=== PATIENT | male | born 1990 | race Caucasian/White ===

== ENCOUNTER 2023-05-12 13:09 | Inpatient (IN) | payer OTHER ==
[2023-05-12 15:26] LABS: BASO % 0.8 % (0-2.0); EOS % 1.8 % (0-4.5); HEMATOCRIT 50.1 % (35.4-49); HEMOGLOBIN 16.6 GM/dL (11.7-16.9); LYMPH % 19.7 % (8-40); MCH 27.6 pg (25.7-33.7); MEAN CELL VOLUME 83.4 fl (80-96); MEAN PLT VOLUME 8.6 fl (7.5-11.1); MONO % 9.3 % (3.8-10.2); NEUT % 68.4 % (42.8-82.8); PLATELET COUNT 182 10^3/uL (134-434); RBC 6.01 M/mm3 (4.00-5.60); WHITE BLOOD COUNT 14.5 K/mm3 (4.0-10.0)
[2023-05-12 15:47] LABS: POTASSIUM 3.8 mmol/L (3.5-5.1)
[2023-05-12 15:49] LABS: CALCIUM 8.9 mg/dL (8.5-10.1)
[2023-05-12 15:50] LABS: BLOOD UREA NITROGEN 23.8 mg/dL (7-18)
[2023-05-12 15:53] LABS: CREATININE 0.9 mg/dL (0.55-1.3)
[2023-05-12 15:54] LABS: BILIRUBIN,TOTAL 0.5 mg/dL (0.2-1); TOT PROT 7.2 g/dl (6.4-8.2)
[2023-05-12 17:00] LABS: EPI CELLS 2 /uL (0-25.1); HYALINE CASTS 1 /uL (0-3.1); PH,URINE 5.5 (5.0-8.0); URINE APPEARANCE CLEAR; URINE BACTERIA 5 /uL (0-1359); URINE BILIRUBIN NEGATIVE (NEGATIVE); URINE COLOR DK YELLOW; URINE GLUCOSE (UA) NEGATIVE (NEGATIVE); URINE KETONE NEGATIVE (NEGATIVE); URINE LEUK ESTERASE NEGATIVE (NEGATIVE); URINE NITRITE NEGATIVE (NEGATIVE); URINE PROTEIN NEGATIVE (NEGATIVE); URINE RBC 109 /uL (0-23.9); URINE WBC 9 /uL (0-25.8)
[2023-05-12] MEDS ORDERED: SODIUM CHLORIDE 0.9% 1000 ML INFUS.BAG IV ONE (18:07)
[2023-05-12] MEDS ORDERED: ACETAMINOPHEN 1000 MG/100 ML BAG IVPB PRN (20:14)
[2023-05-12] MEDS ORDERED: ONDANSETRON 4 MG/2 ML VIAL IVPB PRN (20:15)
[2023-05-12] MEDS ORDERED: PANTOPRAZOLE SODIUM 40 MG VIAL IVPUSH SCH (20:22)
[2023-05-12] MEDS ORDERED: PIPERACILLIN/TAZOB 4.5 GM 4.5 GM in DEXTROSE 5%-WATER 100 ML IVPB ONE (20:38)
[2023-05-12] MEDS ORDERED: PANTOPRAZOLE SODIUM 40 MG VIAL ONE (20:39)
[2023-05-12] MEDS: SODIUM CHLORIDE 1,000 ML IV SCH (20:41)
[2023-05-12] MEDS: PANTOPRAZOLE SODIUM 40 MG VIAL IVPUSH SCH (20:42)
[2023-05-12] MEDS ORDERED: PIPERACILLIN/TAZOB 4.5 GM 4.5 GM/100 ML BAG IVPB ONE (20:44)
[2023-05-12] MEDS ORDERED: ACETAMINOPHEN INJECTION 100 ML IVPB ONE (20:44)
[2023-05-12] MEDS ORDERED: morphine SULFATE 4 MG/ML VIAL IVPUSH PRN (21:06)
[2023-05-12 23:51] LABS: INR 1.07 (0.83-1.09); PROTHROMBIN TIME (PATIENT) 12.4 SEC (9.7-13.0)
[2023-05-13] MEDS: SODIUM CHLORIDE 1,000 ML IV SCH ×2 (02:53→12:31)
[2023-05-13 03:15] VITALS: RESP 18; BMI 39.4
[2023-05-13] MEDS ORDERED: PIPERACILLIN/TAZOB 3.375 GM 3.375 GM in DEXTROSE 5%-WATER - 50 ML IVPB SCH ×3 (06:41→10:00)
[2023-05-13 09:08] LABS: HEMATOCRIT 43.9 % (35.4-49); HEMOGLOBIN 15.3 GM/dL (11.7-16.9); MCH 28.6 pg (25.7-33.7); MCHC 34.9 g/dl (32.0-35.9); MEAN CELL VOLUME 81.8 fl (80-96); MEAN PLT VOLUME 8.9 fl (7.5-11.1); PLATELET COUNT 159 10^3/uL (134-434); RBC 5.37 M/mm3 (4.00-5.60); RDW 13.1 % (11.9-15.9); WHITE BLOOD COUNT 11.7 K/mm3 (4.0-10.0)
[2023-05-13 09:14] LABS: POTASSIUM 3.8 mmol/L (3.5-5.1)
[2023-05-13 09:19] LABS: ALBUMIN 3.4 g/dl (3.4-5.0); CALCIUM 8.2 mg/dL (8.5-10.1)
[2023-05-13 09:20] LABS: BLOOD UREA NITROGEN 16.8 mg/dL (7-18); MAGNESIUM 2.1 mg/dL (1.8-2.4)
[2023-05-13 09:21] LABS: BILIRUBIN,DIRECT 0.2 mg/dL (0.0-0.2)
[2023-05-13 09:22] LABS: CREATININE 0.7 mg/dL (0.55-1.3); PHOSPHOROUS 3.1 mg/dL (2.5-4.9)
[2023-05-13 09:23] LABS: BILIRUBIN,TOTAL 1.2 mg/dL (0.2-1); TOT PROT 6.4 g/dl (6.4-8.2)
[2023-05-13] MEDS ORDERED: PIPERACILLIN/TAZOB 3.375 GM 3.375 GM in DEXTROSE 5%-WATER - 50 ML IVPB ONE (10:00)
[2023-05-13] MEDS: PANTOPRAZOLE SODIUM 40 MG VIAL IVPUSH SCH ×2 (10:40→22:29)
[2023-05-13] MEDS ORDERED: ACETAMINOPHEN 1000 MG/100 ML BAG IVPB PRN (16:57)
[2023-05-13] MEDS: PIPERACILLIN/TAZOB 4.5 GM 4.5 GM in DEXTROSE 5%-WATER 100 ML IVPB SCH (18:08)
[2023-05-14] MEDS: PIPERACILLIN/TAZOB 4.5 GM 4.5 GM in DEXTROSE 5%-WATER 100 ML IVPB SCH ×2 (02:18→09:47)
[2023-05-14 06:30] VITALS: BP 112/62; PULSE 62; TEMP 98.2
[2023-05-14] MEDS: PANTOPRAZOLE SODIUM 40 MG VIAL IVPUSH SCH (09:47)
[2023-05-14 10:44] LABS: BASO % 0.6 % (0-2.0); EOS % 2.3 % (0-4.5); HEMATOCRIT 45.4 % (35.4-49); HEMOGLOBIN 15.9 GM/dL (11.7-16.9); LYMPH % 20.4 % (8-40); MCH 28.5 pg (25.7-33.7); MEAN CELL VOLUME 81.3 fl (80-96); MONO % 9.8 % (3.8-10.2); NEUT % 66.9 % (42.8-82.8); PLATELET COUNT 167 10^3/uL (134-434); RBC 5.59 M/mm3 (4.00-5.60); RDW 13.2 % (11.9-15.9)
[2023-05-14 11:31] LABS: POTASSIUM 3.8 mmol/L (3.5-5.1)
[2023-05-14 11:33] LABS: ALBUMIN 3.6 g/dl (3.4-5.0); CALCIUM 8.8 mg/dL (8.5-10.1)
[2023-05-14 11:34] LABS: BLOOD UREA NITROGEN 15.4 mg/dL (7-18); MAGNESIUM 2.3 mg/dL (1.8-2.4)
[2023-05-14 11:36] LABS: CREATININE 0.8 mg/dL (0.55-1.3); PHOSPHOROUS 3.3 mg/dL (2.5-4.9)
[2023-05-14 11:38] LABS: BILIRUBIN,TOTAL 1.1 mg/dL (0.2-1); TOT PROT 7.1 g/dl (6.4-8.2)
== END 2023-05-14 14:33 | disposition home or self-care (01) | DRG 394 ==
LOC: JER 13:09 → JERBED 18:06 → J5S 05-13 02:46
PROVIDERS: ADMIT Internal Medicine; ATTEND Internal Medicine
DX: K35.80 Unspecified acute appendicitis (principal); N17.9 Acute kidney failure, unspecified; K21.9 Gastro-esophageal reflux disease without esophagitis; D72.829 Elevated white blood cell count, unspecified
CPT/HCPCS: 36415; 74177-TC; 80048; 80053; 80076; 81003; 83735; 84100; 85025; 85027; 85610; 86850; 86900; 86901; 87040; 93005; 93010; 99285-25; Q9967

== ENCOUNTER 2023-06-17 04:41 | Day surgery (SDC) | payer OTHER ==
[2023-06-10 17:28] VITALS: BMI 39.9
[~2023-06-17 04:41] MED LIST: BUPIVACAINE HCL/PF 0.25% (2.5MG/ML) 10 ML VIAL IJ ONE
[2023-06-17] MEDS ORDERED: BUPIVACAINE HCL/PF 0.25% (2.5MG/ML) 10 ML VIAL ONE (09:22)
[2023-06-17] MEDS ORDERED: MIDAZOLAM HCL 2 MG/2 ML SINGLE DOSE VIAL ONE ×2 (09:33→09:36)
[2023-06-17] MEDS ORDERED: PROPOFOL 20 ML ONE (09:33)
[2023-06-17] MEDS ORDERED: GLYCOPYRROLATE 0.2 MG/1 ML VIAL ONE (09:39)
[2023-06-17] MEDS ORDERED: cefOXitin SODIUM 2 GM VIAL (RESTRICTED TO ID) IVPB ONE ×2 (09:53→09:54)
[2023-06-17] MEDS ORDERED: SUGAMMADEX SODIUM 200 MG/2 ML VIAL ONE (09:54)
[2023-06-17] MEDS ORDERED: ROCURONIUM BROMIDE 50 MG/5 ML SYRINGE ONE (09:54)
[2023-06-17] MEDS ORDERED: BUPIVACAINE HCL/PF 0.25% (2.5MG/ML) 10 ML VIAL IJ ONE (10:06)
[2023-06-17] MEDS ORDERED: ONDANSETRON 4 MG/2 ML VIAL IVPUSH PRN (11:02)
[2023-06-17] MEDS ORDERED: LACTATED RINGERS SOLUTION 1,000 ML IV SCH (11:15)
[2023-06-17 13:41] VITALS: RESP 18
[2023-06-17 15:33] VITALS: BP 124/64; PULSE 68; TEMP 98
== END 2023-06-17 15:35 | disposition home or self-care (01) ==
LOC: JASU-SURG 04:41
PROVIDERS: ATTEND Surgery
PROC: 0DTJ4ZZ Resection of Appendix, Percutaneous Endoscopic Approach (ICD-10-PCS; principal; 2023-06-17 10:30)
DX: C18.1 Malignant neoplasm of appendix (principal); K35.32 Acute appendicitis with perforation, localized peritonitis, and gangrene, without abscess
CPT/HCPCS: 94760

== ENCOUNTER 2023-07-22 04:27 | Day surgery (SDC) | payer OTHER ==
[2023-07-22 10:08] VITALS: BMI 34.4
[2023-07-22 11:58] VITALS: TEMP 97.5
[2023-07-22 12:34] VITALS: BP 108/77; PULSE 81; RESP 17
== END 2023-07-22 12:49 | disposition home or self-care (01) ==
LOC: JASU-ENDO 04:27
PROVIDERS: ATTEND Internal Medicine Gastroenterology
PROC: 0DBC8ZX Excision of Ileocecal Valve, Via Natural or Artificial Opening Endoscopic, Diagnostic (ICD-10-PCS; 2023-07-22)
PROC: 0DBH8ZX Excision of Cecum, Via Natural or Artificial Opening Endoscopic, Diagnostic (ICD-10-PCS; principal; 2023-07-22 11:00)
DX: Z12.11 Encounter for screening for malignant neoplasm of colon (principal); K64.8 Other hemorrhoids; Z85.09 Personal history of malignant neoplasm of other digestive organs
CPT/HCPCS: 88305-TC

== ENCOUNTER 2023-07-29 04:16 | Inpatient (IN) | payer OTHER ==
[2023-07-25 11:46] VITALS: BMI 34.1
[2023-07-29] MEDS: GABAPENTIN 300 MG CAPSULE PO ONE (06:55)
[2023-07-29] MEDS ORDERED: INDOCYANINE GREEN 25 MG/10 ML VIAL IVPUSH ONE (07:21)
[2023-07-29] MEDS ORDERED: BUPIVACAINE HCL/PF 0.25% (2.5MG/ML) 10 ML VIAL ONE (07:22)
[2023-07-29] MEDS ORDERED: oxyCODONE HCL 5 MG TABLET PO PRN (07:29)
[2023-07-29] MEDS ORDERED: ONDANSETRON 4 MG/2 ML VIAL IVPUSH PRN (07:29)
[2023-07-29] MEDS ORDERED: DEXAMETHASONE SOD PHOSPHATE 4 MG/1 ML VIAL ONE (07:44)
[2023-07-29] MEDS ORDERED: ATROPINE SO4 0.4 MG/1 ML VIAL ONE (07:45)
[2023-07-29] MEDS ORDERED: MIDAZOLAM HCL 2 MG/2 ML SINGLE DOSE VIAL ONE (07:45)
[2023-07-29] MEDS ORDERED: HYDROmorphone HCl 2 MG/ML VIAL ONE (07:45)
[2023-07-29] MEDS ORDERED: ePHEDrine SULFATE 50 MG/1 ML AMPULE ONE (07:45)
[2023-07-29] MEDS ORDERED: PROPOFOL 40 ML ONE (07:45)
[2023-07-29] MEDS ORDERED: LIDOCAINE HCL 2% 100 MG/5 ML DISP.SYRIN ONE (07:45)
[2023-07-29] MEDS: cefOXitin SODIUM 2 GM VIAL (RESTRICTED TO ID) IVPB ONE ×4 (08:30→14:53)
[2023-07-29] MEDS ORDERED: GLYCOPYRROLATE 0.2 MG/1 ML VIAL ONE ×2 (08:43)
[2023-07-29] MEDS ORDERED: KETOROLAC TROMETHAMINE 30 MG/1 ML VIAL ONE (08:43)
[2023-07-29] MEDS ORDERED: ONDANSETRON 4 MG/2 ML VIAL ONE (08:43)
[2023-07-29] MEDS ORDERED: NEOSTIGMINE METHYLSULFATE 0.5 MG/1 ML - 10 ML MDV ONE (08:43)
[2023-07-29] MEDS: BUPIVACAINE HCL/PF 0.25% (2.5MG/ML) 10 ML VIAL IJ ONE ×2 (08:45)
[2023-07-29] MEDS: LACTATED RINGERS SOLUTION 1,000 ML IV SCH (12:57)
[2023-07-29] MEDS: ACETAMINOPHEN 1000 MG/100 ML BAG IVPB ONE (14:53)
[2023-07-29] MEDS: SCOPOLAMINE HYDROBROMIDE 1 PATCH PATCH.TD72 TD ONE (14:53)
[2023-07-29] MEDS: ACETAMINOPHEN 1000 MG/100 ML BAG IVPB SCH (14:56)
[2023-07-29] MEDS: AMPICILLIN NA/SULBACTAM NA 1.5 GM in SODIUM CHLORIDE 100 ML IVPB SCH ×2 (15:48→15:55)
[2023-07-30 02:27] VITALS: RESP 18
[2023-07-30 09:58] LABS: BASO % 0.5 % (0-2.0); EOS % 1.2 % (0-4.5); HEMATOCRIT 43.8 % (35.4-49); HEMOGLOBIN 14.9 GM/dL (11.7-16.9); LYMPH % 27.9 % (8-40); MCH 28.3 pg (25.7-33.7); MEAN CELL VOLUME 83.2 fl (80-96); MEAN PLT VOLUME 8.9 fl (7.5-11.1); MONO % 9.5 % (3.8-10.2); NEUT % 60.9 % (42.8-82.8); PLATELET COUNT 160 10^3/uL (134-434); RBC 5.26 M/mm3 (4.00-5.60); RDW 13.5 % (11.9-15.9)
[2023-07-30 10:49] LABS: POTASSIUM 3.6 mmol/L (3.5-5.1)
[2023-07-30 11:04] LABS: BLOOD UREA NITROGEN 9.1 mg/dL (7-18); MAGNESIUM 1.9 mg/dL (1.8-2.4); PHOSPHOROUS 3.2 mg/dL (2.5-4.9)
[2023-07-30 11:05] LABS: CREATININE 0.6 mg/dL (0.55-1.3)
[2023-07-30] MEDS: ENOXAPARIN NA (PORCINE) 40 MG/0.4 ML DISP.SYRIN SQ SCH (11:53)
[2023-07-30 11:54] LABS: CALCIUM 8.6 mg/dL (8.5-10.1)
[2023-07-31] MEDS: MULTIVITAMINS (DAILY MVI) TABLET (FP) PO SCH (09:54)
[2023-07-31 10:08] LABS: BASO % 0.7 % (0-2.0); EOS % 2.6 % (0-4.5); HEMATOCRIT 44.6 % (35.4-49); HEMOGLOBIN 15.2 GM/dL (11.7-16.9); MCH 28.1 pg (25.7-33.7); MEAN CELL VOLUME 82.7 fl (80-96); MONO % 7.9 % (3.8-10.2); NEUT % 62.8 % (42.8-82.8); PLATELET COUNT 175 10^3/uL (134-434); RBC 5.39 M/mm3 (4.00-5.60); RDW 13.3 % (11.9-15.9); WHITE BLOOD COUNT 9.2 K/mm3 (4.0-10.0)
[2023-07-31 10:27] LABS: POTASSIUM 3.5 mmol/L (3.5-5.1)
[2023-07-31 10:32] LABS: BLOOD UREA NITROGEN 8.9 mg/dL (7-18); CALCIUM 8.6 mg/dL (8.5-10.1); MAGNESIUM 2.1 mg/dL (1.8-2.4)
[2023-07-31 10:35] LABS: CREATININE 0.6 mg/dL (0.55-1.3); PHOSPHOROUS 3.1 mg/dL (2.5-4.9)
[2023-07-31 16:07] VITALS: BP 116/82; PULSE 84; TEMP 98.4
== END 2023-07-31 17:15 | disposition home or self-care (01) | DRG 331 ==
LOC: J2C 04:16 → J8W 14:47
PROVIDERS: ADMIT Surgery; ATTEND Nurse Practitioner Family
PROC: 8E0W4CZ Robotic Assisted Procedure of Trunk Region, Percutaneous Endoscopic Approach (ICD-10-PCS; 2023-07-29)
PROC: 0DTF4ZZ Resection of Right Large Intestine, Percutaneous Endoscopic Approach (ICD-10-PCS; principal; 2023-07-29 08:00)
DX: C7A.020 Malignant carcinoid tumor of the appendix (principal); E66.9 Obesity, unspecified; Z68.34 Body mass index [BMI] 34.0-34.9, adult
CPT/HCPCS: 36415; 80048; 83735; 84100; 85025; 86140; 86850; 86900; 86901; 88309-TC; 94760; J0131